=== PATIENT | male | born 1935 | race Two or more races ===

== ENCOUNTER 2017-05-22 09:04 | Outpatient (CLI) | payer OTHER ==
[~2017-05-22 09:04] MED LIST: ALTACE10 MG; ALTACE5 MG; ETODOLAC400 M1; GLIPIZIDE10 MG; GLUMETZA1000 MG; HYDROCHLOROTH12.5 M1; JANUVIA100 MG; LIPITOR20 MG; NEURONTIN300 MG; PRILOSEC10 MG
== END 2017-05-22 09:06 | disposition home or self-care (01) ==
LOC: SONOGRAMA 09:04
DX: E04.1 Nontoxic single thyroid nodule (principal)